=== PATIENT | male | born 1955 | race Caucasian/White ===

== ENCOUNTER 2021-11-10 23:11 | Inpatient (IN) | payer OTHER, MEDICAID ==
[~2021-11-10] VITALS: Ht 190.5 cm; Wt 82.4 kg
[~2021-11-10 23:11] MED LIST: DIVA500T17 PO; LORA-434 PO; MELA5CAP PO; NICO1PAT21 TP; NICO2GUM42 BC; QUET300T2 PO
[2021-11-10 23:30] VITALS: BP 116/80
[2021-11-10 23:45] VITALS: BP 112/68
[2021-11-11] VITALS (12 sets, daily range): BP systolic 87–112; BP diastolic 60–75
[2021-11-11] MEDS ORDERED: IV NORMAL SALINE 1000ML BAG 1,000 ML IV SCH (00:15)
[2021-11-11] MEDS ORDERED: ONDANSETRON PF 4 MG/2 ML VIAL. IVP PRN (00:15)
[2021-11-11] MEDS ORDERED: ACETAMINOPHEN 325 MG TABLET. PO PRN (00:15)
[2021-11-11] MEDS ORDERED: FLUO20TA11 PO (00:26)
[2021-11-11] MEDS ORDERED: FLUV100T16 PO (00:26)
[2021-11-11] MEDS ORDERED: LAMO200T3 PO (00:26)
[2021-11-11] MEDS ORDERED: HYDR50CA2 PO (00:26)
[2021-11-11] MEDS ORDERED: QUET100T4 PO (00:29)
[2021-11-11] MEDS ORDERED: QUET300T89 PO (00:29)
[2021-11-11] MEDS ORDERED: hydrOXYzine 25 MG TABLET PO PRN (00:45)
[2021-11-11] MEDS ORDERED: QUEtiapine 100 MG TABLET. PO SCH ×2 (00:45→01:00)
[2021-11-11] MEDS ORDERED: QUEtiapine 300 MG TAB.ER.24H. PO SCH (00:45)
--- NOTE | 2021-11-11 02:10 | NUR ---
Patient admitted to ICU from [facility] via EMS at 2300. Patient walked from ER [facility] to ICU bed with standby assist and steady gait. Monitor on. VSS. Assessment completed, see assessment intervention. NSR. RA. No c/o pain at this time. [facility] performed. Dr. Remy notified of patient arrival/condition. New orders received. Will implement. Call light with reach. Will continue to monitor.
--- NOTE | 2021-11-11 08:16 | PDOC1 ---
History and Physical Date of Service: DOS: DATE: 11/11/21 TIME: 08:05 Chief Complaint: Chief Complain: Headaches History of Present Illness: HPI: 65-year-old male who presents to the emergency department for left-sided head pain this been intermittent over the last 2 weeks. Patient describes the pain as a pressure. He reports having history of headaches but this is the worst headache he is ever had. He does report left eye photophobia. He denies any injury, vision changes, nausea, vomiting, photophobia. Patient is also reporting left eye redness that occurs when he is in a hot shower and resolves when he is out of the shower. Past Medical/Surgical History: PMH/PSH: Past Medical History: Anxiety, Depression Past Surgical History: Appendectomy Allergies: Allergies: Coded Allergies: No Known Drug Allergies (Unverified , 10/26/15) Family History: Family History: Reviewed with no relative findings in the chart Social History: Social History: Alcohol Use: None Drug Use: None Current Medications: Current Medications Current Medications Sodium Chloride 1,000 ml @ 50 mls/hr Q20H IV Last administered on 11/11/21at 00:15; Start 11/11/21 at 00:15 Lorazepam (Ativan Inj) 0.25 mg PRN Q6HRS PRN IVP ANXIETY / AGITATION; Start 11/11/21 at 00:15 Ondansetron HCl (Zofran) 4 mg PRN Q6HRS PRN IVP NAUSEA/VOMITING; Start 11/11/21 at 00:15 Acetaminophen (Tylenol) 650 mg PRN Q8HRS PRN PO MILD PAIN / TEMP > 100.3'F; Start 11/11/21 at 00:15 Nicotine (Nicoderm Cq 14mg) 1 patch DAILY TD ; Start 11/11/21 at 09:00 Quetiapine Fumarate (SEROquel XR) 600 mg HS PO Last administered on 11/11/21at 01:06; Start 11/11/21 at 00:45 Quetiapine Fumarate (SEROquel) 100 mg QHS PO ; Start 11/11/21 at 00:45; Status Cancel Fluoxetine HCl (PROzac) 80 mg DAILY PO ; Start 11/11/21 at 09:00 Fluvoxamine Maleate (Luvox) 200 mg QHS PO Last administered on 11/11/21at 01:06; Start 11/11/21 at 00:45 Hydroxyzine HCl (Atarax) 50 mg PRN Q6HRS PRN PO ALLERGIES; Start 11/11/21 at 00:45 Quetiapine Fumarate (SEROquel) 300 mg QHS PO Last administered on 11/11/21at 01:07; Start 11/11/21 at 01:00 Active Scripts Active Reported Seroquel (Quetiapine Fumarate) 100 Mg Tablet 1 Tab PO QHS Seroquel Xr (Quetiapine Fumarate) 300 Mg Tab.er.24h 600 Mg PO HS Hydroxyzine Pamoate 50 Mg Capsule 50 Mg PO PRN Q8HRS PRN Fluvoxamine Maleate 100 Mg Tablet 2 Tab PO QHS Fluoxetine Hcl 20 Mg Tablet 4 Tab PO DAILY Lamictal (Lamotrigine) 200 Mg Tablet 1 Tab PO BID ROS: Review of Systems Review of System REVIEW OF SYSTEMS: GENERAL: Denies weakness SKIN: No bruising, hair changes or rashes. EYES: No blurred, double or loss of vision. NOSE AND THROAT: No history of nosebleeds, hoarseness or sore throat. HEART: No history of palpitations, chest pain or shortness of breath on exertion. LUNGS: Denies cough, hemoptysis, wheezing or shortness of breath. GASTROINTESTINAL: Denies changes in appetite, nausea, vomiting, diarrhea or constipation. GENITOURINARY: No history of frequency, urgency, hesitancy or nocturia. NEUROLOGIC: Positive for headache PSYCHIATRIC: No history of panic, anxiety or depression. ENDOCRINE: No history of heat or cold intolerance, polyuria or polydipsia. EXTREMITIES: Denies joint pain, pain on walking or stiffness. Physical Exam: Vital Signs: Vital Signs Date Time Temp Pulse Resp B/P (MAP) Pulse Ox O2 Delivery O2 Flow Rate FiO2 11/11/21 06:00 78 16 100/73 (82) 97 Room Air 11/11/21 04:00 97.7 97.7 Physcial Exam: General: Well developed, well nourished, no acute distress, well appearing HEENT: Pupils equally round and reactive to light, EOMI, no discharge, normal conjunctiva Neck: Supple, no nuchal rigidity, no JVD, trachea midline, no tenderness Cardiac: RRR, no murmurs, no gallops, no rubs Chest/Lungs: CTAB, no wheeze, no rhonchi, no crackles Abdomen: soft, non-distended, no guarding, no peritoneal signs, non-tender Back: No tenderness Extremities: no edema, pulses intact, non-tender,capillary refill <3 sec bilateral upper and lower extremities, Neuro: Alert and oriented x 4, no focal deficits, normal speech Labs: Labs: Labs reviewed from [facility] with no significant abnormalities. Images: Images PROCEDURE: CT HEAD WO CONTRAST PQRS Compliance Statement: One or more of the following individualized dose reduction techniques were utilized for this examination: 1. Automated exposure control 2. Adjustment of the mA and/or kV according to patient size 3. Use of iterative reconstruction technique CT HEAD WITHOUT CONTRAST History: Reason: "worst headache" / Spl. Instructions: / History: Comparison: CT head without contrast October 26, 2015. Technique: Axial images are obtained of the head from the skull base through the vertex without IV contrast. Findings: There is tiny left frontal convexity acute subdural hematoma, for example image 21. The maximum thickness of the hematoma is 3 mm. No mass-effect, midline shift, or obvious acute infarction is identified. Bas ilar cisterns are patent. The ventricles and sulci are prominent, consistent with generalized cerebral atrophy. There is incidental cavum. There is mild periventricular white matter hypoattenuation. This is a nonspecific finding but is commonly due to chronic small vessel ischemic disease. Bone windows demonstrate no acute calvarial abnormality. There is mild mucosal thickening of the bilateral ethmoid and left sphenoid sinuses. Mastoid air cells are well aerated. IMPRESSION: There is tiny left frontal acute subdural hematoma. There is no mass effect or midline shift. Assessment/Plan Assessment/Plan Acute subdural hematoma History of depression anxiety Admitted to ICU for close monitoring Neurosurgery consulted Neurology consulted SBP parameters between 110-170 Trend hemoglobin Pending PT/INR Neurovascular checks per ICU protocol Pending repeat CT of the head Start Cardene drip if blood pressures go outside of parameters Resume home psychiatric and antidepressive medications SCD for DVT prophylaxis Regular diet CODE STATUS full Discussed with RN and SW Disposition pending repeat CT of the head DPOA: Undesignated A total of 40 minutes of critical care time was spent in reviewing chart, labs, and images. Discussed with RN and SW. Justifications for Admission Other Justification TESS KNOWLES MD November 11, 2021 08:16
[2021-11-11] MEDS ORDERED: FLUoxetine HCL 20 MG CAPSULE PO SCH (09:00)
[2021-11-11] MEDS ORDERED: NICOTINE 14MG PATCH. TD SCH (09:00)
[2021-11-11 09:08] LABS: BASO % 0 % (0-3); EOS # 0.4 x10^3/uL (0.0-0.7); EOS % 6 % (0-3); HEMATOCRIT 41.7 % (39.0-53.0); HEMOGLOBIN 14.4 g/dL (13.0-17.5); LYMPH # 2.2 x10^3/uL (1.0-4.8); LYMPH % 38 % (24-48); MEAN CORPUSCULAR HEMOGLOBIN 31 pg (25-35); MEAN CORPUSCULAR HGB CONC 34 g/dL (31-37); MEAN CORPUSCULAR VOLUME 90 fL (79-100); MONO # 0.5 x10^3/uL (0.0-1.1); MONO % 9 % (0-9); NEUT # 2.8 x10^3/uL (1.8-7.7); NEUT % 48 % (31-73); PLATELET COUNT 149 x10^3/uL (140-400); RED BLOOD COUNT 4.61 x10^6/uL (4.30-5.70); RED CELL DISTRIBUTION WIDTH 13.5 % (11.5-14.5)
[2021-11-11 09:18] LABS: PROTHROMBIN TIME PATIENT 12.7 SEC (11.7-14.0)
[2021-11-11 09:21] LABS: CALCIUM 8.7 mg/dL (8.5-10.1); GFR 74.8; MAGNESIUM 1.9 mg/dL (1.8-2.4); POTASSIUM 3.9 mmol/L (3.5-5.1)
--- NOTE | 2021-11-11 10:30 | RAD ---
CT brain without contrast. HISTORY: Subdural hematoma CT scan of brain was done without contrast. Comparison is made with a study from one day ago. There i s slight mucosal thickening in ethmoid sinuses. There is no skull fracture. There is a small left fro ntal subdural hematoma without change from the prior study. There is no mass effect or shift of the m idline. An acute CVA is not identified. IMPRESSION: 1. Small left frontal subdural hematoma without change. PQRS Compliance Statement: One or more of the following individualized dose reduction techniques were utilized for this examinat ion: 1. Automated exposure control 2. Adjustment of the mA and/or kV according to patient size 3. Use of iterative reconstruction technique Electronically signed by: Michael Vallejo MD (11/11/2021 10:28 AM) [facility]
[2021-11-11] MEDS ORDERED: lamoTRIgine 100 MG TABLET. PO SCH (12:00)
--- NOTE | 2021-11-12 13:13 | PDOC3 ---
[facility]-Discharge Summary Date of Admission: Date of Admission: November 11, 2021 Date of Discharge: Date of Discharge: November 11, 2021 Discharge Diagnosis: Discharge Diagnosis: Acute subdural hematoma History of depression anxiety Hospital Course: Hospital Course: 65-year-old male who presents to the emergency department for left-sided head pain this been intermittent over the last 2 weeks. Patient describes the pain as a pressure. He reports having history of headaches but this is the worst headache he is ever had. He does report left eye photophobia. He denies any injury, vision changes, nausea, vomiting, photophobia. Patient is also reporting left eye redness that occurs when he is in a hot shower and resolves when he is out of the shower. By day of discharge CT head revealed stable head bleed. Neurosurgery cleared patient for discharge. Patient was clinically stable and headache has improved. Rest of hospital course was uneventful. Disposition: Disposition/Orders: D/C to Home Activity: Activity: Resume previous activity Diet: Diet: Cardiac Medications: Home Meds Reported Medications Quetiapine Fumarate (SEROQUEL) 100 Mg Tablet, 1 TAB PO QHS for schizophrenia, #30 TAB 1 Refill 11/11/21 Quetiapine Fumarate (SEROQUEL XR) 300 Mg Tab.er.24h, 600 MG PO HS for schizophrenia, TAB.SR 11/11/21 Hydroxyzine Pamoate (HYDROXYZINE PAMOATE) 50 Mg Capsule, 50 MG PO PRN Q8HRS PRN for ALLERGIES, CAP 11/11/21 Fluvoxamine Maleate (FLUVOXAMINE MALEATE) 100 Mg Tablet, 2 TAB PO QHS for depression, #30 TAB 11/11/21 Fluoxetine Hcl (FLUOXETINE HCL) 20 Mg Tablet, 4 TAB PO DAILY for depression, #90 TAB 3 Refills 11/11/21 Lamotrigine (LAMICTAL) 200 Mg Tablet, 1 TAB PO BID for "I don't know", #60 TAB 2 Refills 11/11/21 Scheduled Fluoxetine Hcl (Fluoxetine Hcl), 4 TAB PO DAILY, (Reported) Fluvoxamine Maleate (Fluvoxamine Maleate), 2 TAB PO QHS, (Reported) Lamotrigine (Lamictal), 1 TAB PO BID, (Reported) Quetiapine Fumarate (Seroquel Xr), 600 MG PO HS, (Reported) Quetiapine Fumarate (Seroquel), 1 TAB PO QHS, (Reported) Scheduled PRN Hydroxyzine Pamoate (Hydroxyzine Pamoate), 50 MG PO PRN Q8HRS PRN for ALLERGIES, (Reported) Total Time: Total Time: Total time spent was 31 minutes in preparing scripts, discharge planning with SWI and RN and preparing this discharge summary Patient seen and examined on day of discharge. No acute abnormal findings. Justicifation of Admission Dx: Justifications for Admission: Justification of Admission Dx: Yes (Subdural hematoma) TESS KNOWLES MD November 12, 2021 13:13
--- NOTE | 2021-11-12 14:30 | PDOC ---
Provider Note Date of Service: DATE: 11/12/21 TIME: 14:26 Provider Note LATE ENTRY 11/11/21 @1130 Patient seen and examined 65-year-old male who presents to the emergency department for left-sided head pain this been intermittent over the last 2 weeks. Patient describes the pain as a pressure. He reports having history of headaches but this is the worst headache he is ever had. He does report left eye photophobia. He denies any injury, vision changes, nausea, vomiting, photophobia. Patient is also reporting left eye redness that occurs when he is in a hot shower and resolves when he is out of the shower. no complains of headache currently normal neuro exam CT with very small left frontal subdural hematoma. Without change on f/u CT. OK to dc from my standpoint will need f/u CT head in a week d/w RN Justifications for Admission Other Justification CATRACHITA FERNÁNDEZ MD November 12, 2021 14:30
== END 2021-11-11 13:11 | disposition home or self-care (01) | DRG 66 ==
LOC: 1 WEST ICU 23:11
PROVIDERS: ADMIT Internal Medicine; ATTEND Internal Medicine
DX: I62.01 Nontraumatic acute subdural hemorrhage (principal); F32.A Depression, unspecified; F41.9 Anxiety disorder, unspecified
CPT/HCPCS: 36415; 70450; 80048; 83735; 85025; 85610; J7030; G0378